=== PATIENT | male | born 1960 | race Caucasian/White ===

== ENCOUNTER 2018-12-24 19:46 | Inpatient (IN) | payer OTHER ==
--- NOTE | 2018-12-24 20:39 | C.PDOC ---
History Of Present Illness 58 year old male is sent to the ED by Dr. Hauser for admission to the OR. Patient reports having a boil, pimple on his face that developed into an abscess. patient states he tried using home remedies, popping and squeezing it with minimal puss coming out. Patient reports area got larger, went to see Dr. Hauser today and was sent to the ED for admission to the OR. Patient denies fever, chills, rash, neck swelling, lymphadenopathy. Time Seen by Provider: 12/24/18 20:28 Chief Complaint (Nursing): Abnormal Skin Integrity History Per: Patient History/Exam Limitations: no limitations Onset/Duration Of Symptoms: Days Current Symptoms Are (Timing): Still Present Location Of Injury: Left: Face (cheekbone) Quality Of Symptoms: Swollen Recent travel outside of the [place]: No Additional History Per: Patient Past Medical History Reviewed: Historical Data, Nursing Documentation, Vital Signs Vital Signs: Last Vital Signs Temp 98 F 12/24/18 20:10 Pulse 99 H 12/24/18 20:10 Resp 16 12/24/18 20:10 BP 198/112 H 12/24/18 20:10 Pulse Ox 95 12/24/18 20:10 - Medical History PMH: No Chronic Diseases Surgical History: No Surg Hx Family History: States: Unknown Family Hx - Social History Hx Alcohol Use: No Hx Substance Use: No - Immunization History Hx Tetanus Toxoid Vaccination: Yes Hx Influenza Vaccination: No Hx Pneumococcal Vaccination: No Review Of Systems Constitutional: Negative for: Fever, Chills ENT: Negative for: Throat Pain, Throat Swelling Respiratory: Negative for: Cough, Shortness of Breath Gastrointestinal: Negative for: Nausea, Vomiting, Abdominal Pain Musculoskeletal: Negative for: Neck Pain Skin: Positive for: Other (abscess). Negative for: Rash Neurological: Negative for: Weakness, Numbness, Headache Physical Exam - Physical Exam Appears: Non-toxic, No Acute Distress Skin: Normal Color, Warm, Dry Head: Atraumatic, Normacephalic, Other (left cheek, quarter size firm abscess with overlying ulceration. No draining) Eye(s): bilateral: Normal Inspection Oral Mucosa: Moist Neck: Normal ROM, No Midline Cervical Tenderness, Supple Lymphatic: No Adenopathy Cardiovascular: Rhythm Regular Respiratory: Normal Breath Sounds, No Rales, No Rhonchi, No Wheezing Extremity: Normal ROM Neurological/Psych: Oriented x3, Normal Speech, Normal Cognition Gait: Steady ED Course And Treatment - Laboratory Results Result Diagrams: 12/24/18 21:01 O2 Sat by Pulse Oximetry: 95 (ON RA) Pulse Ox Interpretation: Normal - Physician Consult Information Physician Contacted: Tutu Green Outcome Of Conversation: Patient to be admitted for I&D in OR and IV antibiotics. Disposition - Disposition Disposition: HOSPITALIZED Disposition Time: 21:06 Condition: STABLE - POA Present On Arrival: None - Clinical Impression Clinical Impression: Facial abscess - Scribe Statement The provider has reviewed the documentation as recorded by the Scribe Vinicio Hinton All medical record entries made by the Scribe were at my direction and personally dictated by me. I have reviewed the chart and agree that the record accurately reflects my personal performance of the history, physical exam, medical decision making, and the department course for this patient. I have also personally directed, reviewed, and agree with the discharge instructions and disposition.
[2018-12-24] MEDS ORDERED: Vancomycin 1 GM 1 GM/250 ML BAG IVPB ONE (20:56)
[2018-12-24 21:08] LABS: BASO # 0.1 K/uL (0.0-0.2); BASO % 0.6 % (0.0-2.0); EOS # 0.4 K/uL (0.0-0.7); HEMOGLOBIN 12.1 g/dL (12.0-18.0); LYMPH # 4.8 K/uL (1.0-4.3); LYMPH % 40.7 % (20.0-40.0); MEAN CELL VOLUME 82.5 fL (80.0-94.0); MEAN CORPUSCULAR HEMOGLOBIN 26.8 pg (27.0-31.0); MEAN CORPUSCULAR HGB CONC 32.5 g/dL (33.0-37.0); MEAN PLATELET VOLUME 7.9 fL (7.2-11.7); MONO # 0.9 K/uL (0.0-0.8); MONO % 7.3 % (0.0-10.0); NEUT # 5.7 K/uL (1.8-7.0); NEUT % 48.4 % (50.0-75.0); RBC 4.52 Mil/uL (4.40-5.90); RED CELL DISTRIBUTION WIDTH 13.9 % (11.5-14.5); WHITE BLOOD COUNT 11.8 K/uL (4.8-10.8)
[2018-12-24 21:22] LABS: ALB/GLOB RATIO 1.4 (1.0-2.1); ALBUMIN 4.3 g/dL (3.5-5.0); ALT/SGPT 16 U/L (21-72); AST/SGOT 26 U/L (17-59); BLOOD UREA NITROGEN 13 mg/dL (9-20); CALCIUM 9.1 mg/dl (8.6-10.4); GFR NON-AFRICAN AMERICAN > 60
[2018-12-24 21:24] LABS: PROTHROMBIN TIME 11.2 SECONDS (9.7-12.2)
--- NOTE | 2018-12-24 22:16 | CP.PCM.CON ---
<Lore Babcock - Last Filed: 12/24/18 23:43> History of Present Illness - History of Present Illness History of Present Illness: cc: "periorbital abscess" Mr. Melo is a 58 year old male with Hx of facial abscess was sent in by Dr. Green for facial abscess I&D. Medicine was consulted for hypertension. This abscess is in the same location as his previous abscess last year. It grew to its current size over the last week and a half. It started draining on Saturday, 3 days ago, but still stings. He does state that the swelling does impeded on his vision, but other does not bother him. He states that his blood pressure always runs high, but he does not take any medication for it. Denies chest pain, palpitations, dizziness, numbness, tingling, headaches, shortness of breath. PMH: facial abscess Med: denies All: NKDA PSxHx: abscess I&D 2017 FamHx: unknown SocHx: smokes 0.5ppd x 25 years, drinks beers socially on weekends, denies illicit drugs. 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 Review of Systems - Constitutional Constitutional: absent: Fever - EENT Eyes: Blurred Vision. absent: Change in Vision - Cardiovascular Cardiovascular: absent: Chest Pain, Dyspnea - Respiratory Respiratory: absent: Dyspnea Past Patient History - Past Social History Smoking Status: Heavy Smoker > 10 Cigarettes Daily Alcohol: Social Drugs: Denies - PSYCHIATRIC Hx Substance Use: No - SURGICAL HISTORY Hx Surgeries: No Meds Allergies/Adverse Reactions: Allergies Allergy/AdvReac Type Severity Reaction Status Date / Time No Known Allergies Allergy Verified 12/24/18 20:14 - Medications Medications: Current Medications Acetaminophen (Tylenol 325mg Tab) 650 mg PO Q6 PRN PRN Reason: Pain, moderate (4-7) Physical Exam - Constitutional Appears: Well, Non-toxic, No Acute Distress - Head Exam Head Exam: ATRAUMATIC, NORMOCEPHALIC - Eye Exam Eye Exam: EOMI, PERRL. absent: Conjunctival injection, Scleral icterus Pupil Exam: NORMAL ACCOMODATION Additional comments: fluctuant 2 square inch abscess on L cheek erythematous, no drainage from opening TTP without radiation - ENT Exam ENT Exam: Mucous Membranes Dry - Neck Exam Neck exam: Positive for: Normal Inspection. Negative for: Lymphadenopathy - Respiratory Exam Respiratory Exam: Clear to Auscultation Bilateral, NORMAL BREATHING PATTERN. absent: Rales, Rhonchi, Wheezes - Cardiovascular Exam Cardiovascular Exam: Tachycardia, +S1, +S2. absent: Systolic Murmur - GI/Abdominal Exam GI & Abdominal Exam: Normal Bowel Sounds, Soft. absent: Tenderness - Extremities Exam Extremities exam: Positive for: normal inspection. Negative for: pedal edema - Neurological Exam Neurological exam: Alert, Oriented x3 - Psychiatric Exam Psychiatric exam: Normal Affect, Normal Mood - Skin Skin Exam: Dry, Normal Color, Warm Results - Vital Signs Recent Vital Signs: Last Vital Signs Temp 97.4 F L 12/24/18 21:55 Pulse 81 12/24/18 21:55 Resp 20 12/24/18 21:55 BP 183/97 H 12/24/18 21:55 Pulse Ox 100 12/24/18 21:55 - Labs Result Diagrams: 12/24/18 21:11 12/24/18 21:01 Labs: Laboratory Results - last 24 hr 12/24/18 12/24/18 12/24/18 21:01 21:01 21:11 WBC 11.8 H RBC 4.52 Hgb 12.1 Hct 37.3 MCV 82.5 MCH 26.8 L MCHC 32.5 L RDW 13.9 Plt Count 398 MPV 7.9 Neut % (Auto) 48.4 L Lymph % (Auto) 40.7 H [place] % (Auto) 7.3 Eos % (Auto) 3.0 Baso % (Auto) 0.6 Neut # (Auto) 5.7 Lymph # (Auto) 4.8 H [place] # (Auto) 0.9 H Eos # (Auto) 0.4 Baso # (Auto) 0.1 PT 11.2 INR 1.0 APTT 35 H Sodium 138 Potassium 3.8 Chloride 103 Carbon Dioxide 25 Anion Gap 14 BUN 13 Creatinine 0.9 Est GFR ( Amer) > 60 Est GFR (Non-Af Amer) > 60 Random Glucose 94 Calcium 9.1 Total Bilirubin 0.3 AST 26 ALT 16 L Alkaline Phosphatase 80 Total Protein 7.3 Albumin 4.3 Globulin 3.0 Albumin/Globulin Ratio 1.4 Assessment & Plan - Assessment and Plan (Free Text) Assessment: 58yo M with PMH facial abscess admitted for periorbital abscess I&D. Medicine consulted for asymptomatic HTN. Plan: Periorbital abscess Vanco 1gm IVPB given in ED - Vanco 1gm IVPB daily (started 12/24) - Zosyn 3.375g IVPB q8 (started 12/24) - Tylenol 650mg po q6 prn for pain - NPO for I&D tomorrow - f/u blood Cx - f/u wound Cx - all surgical management per Dr. Green Hypertension BP 198/112 OA Labetalol 10mg IVP, Norvasc 10mg po given in ED - Norvasc 10mg po daily - monitor vitals d/w Dr. Melissa Babcock PGY-1 - Date & Time Date: 12/25/18 Time: 22:15 <Luis Torres - Last Filed: 12/25/18 05:40> Meds - Medications Medications: Current Medications Acetaminophen (Tylenol 325mg Tab) 650 mg PO Q6 PRN PRN Reason: Pain, moderate (4-7) Amlodipine Besylate (Norvasc) 10 mg PO DAILY AGAPITO Last Admin: 12/24/18 22:37 Dose: 10 mg Piperacillin Sod/Tazobactam Sod (Zosyn 3.375 Gm Iv Premix) 3.375 gm in 50 mls @ 100 mls/hr IVPB Q8H AGAPITO; Protocol Last Admin: 12/24/18 23:20 Dose: 100 mls/hr Vancomycin HCl 1 gm/ Sodium (Chloride) 250 mls @ 133 mls/hr IVPB Q24H AGAPITO; Protocol Pneumococcal Polyvalent Vaccine (Pneumovax 23 Vaccine) 0.5 ml IM .ONCE ONE Stop: 12/27/18 10:01 Results - Vital Signs Recent Vital Signs: Last Vital Signs Temp 97.8 F 12/25/18 00:10 Pulse 78 12/25/18 00:10 Resp 20 12/25/18 00:10 BP 175/89 H 12/25/18 00:10 Pulse Ox 95 12/25/18 00:10 - Labs Result Diagrams: 12/24/18 21:11 12/24/18 21:01 Labs: Laboratory Results - last 24 hr 12/24/18 12/24/18 12/24/18 21:01 21:01 21:11 WBC 11.8 H RBC 4.52 Hgb 12.1 Hct 37.3 MCV 82.5 MCH 26.8 L MCHC 32.5 L RDW 13.9 Plt Count 398 MPV 7.9 Neut % (Auto) 48.4 L Lymph % (Auto) 40.7 H [place] % (Auto) 7.3 Eos % (Auto) 3.0 Baso % (Auto) 0.6 Neut # (Auto) 5.7 Lymph # (Auto) 4.8 H [place] # (Auto) 0.9 H Eos # (Auto) 0.4 Baso # (Auto) 0.1 PT 11.2 INR 1.0 APTT 35 H Sodium 138 Potassium 3.8 Chloride 103 Carbon Dioxide 25 Anion Gap 14 BUN 13 Creatinine 0.9 Est GFR ( Amer) > 60 Est GFR (Non-Af Amer) > 60 Random Glucose 94 Calcium 9.1 Total Bilirubin 0.3 AST 26 ALT 16 L Alkaline Phosphatase 80 Total Protein 7.3 Albumin 4.3 Globulin 3.0 Albumin/Globulin Ratio 1.4 Attending/Attestation - Attestation I have personally seen and examined this patient.: Yes I have fully participated in the care of the patient.: Yes I have reviewed all pertinent clinical information: Yes Notes (Text): 12/25/18 05:35 Medical Consult: Patient was seen and examined by me with the medical laboratory technicians. Reviewed the above note by the medical laboratory technicians above and agree with the above. Patient was not in any acute distress however he reported that this has happened before in the past and this time it is bothering him signifigantly. In the ER his BP was in the 190s systolic and so he was given 10 of IV labetalol. We should have an EKG as well as CXR done. Also start norvasc 10 as well - should it remain elevated we can consider starting a second medication. Patient reports he does smoke, occasional alcohol use. He does not take any me dication he says. He has already been given IV abx in the ER and will continue these for the time being until he can be evaluated by his surgeon. There was already an order for NPO after midnight Luis Torres 12/25/18 05:39
[2018-12-24] MEDS ORDERED: Labetalol 25mg/5ml Syringe IVP STA (22:29)
[2018-12-24] MEDS: Piperacill/Tazo 3.375gm in Dex 3.375 GM/50 ML BAG IVPB SCH (23:20)
[2018-12-25] MEDS: Piperacill/Tazo 3.375gm in Dex 3.375 GM/50 ML BAG IVPB SCH ×3 (06:07→22:11)
[2018-12-25 06:53] LABS: BASO # 0.1 K/uL (0.0-0.2); BASO % 0.7 % (0.0-2.0); EOS # 0.3 K/uL (0.0-0.7); EOS % 3.5 % (0.0-4.0); HEMOGLOBIN 12.2 g/dL (12.0-18.0); LYMPH # 3.4 K/uL (1.0-4.3); LYMPH % 36.4 % (20.0-40.0); MEAN CELL VOLUME 83.1 fL (80.0-94.0); MEAN CORPUSCULAR HEMOGLOBIN 27.6 pg (27.0-31.0); MEAN CORPUSCULAR HGB CONC 33.2 g/dL (33.0-37.0); MONO # 0.8 K/uL (0.0-0.8); NEUT # 4.9 K/uL (1.8-7.0); NEUT % 51.4 % (50.0-75.0); NRBC % 0.1 % (0.0-2.0); RBC 4.42 Mil/uL (4.40-5.90); WHITE BLOOD COUNT 9.5 K/uL (4.8-10.8)
[2018-12-25 07:08] LABS: ALB/GLOB RATIO 1.5 (1.0-2.1); ALBUMIN 3.9 g/dL (3.5-5.0); ALT/SGPT 22 U/L (21-72); AST/SGOT 25 U/L (17-59); BLOOD UREA NITROGEN 12 mg/dL (9-20); CALCIUM 8.8 mg/dl (8.6-10.4); GFR NON-AFRICAN AMERICAN > 60
--- NOTE | 2018-12-25 07:35 | CP.PCM.PN ---
<Salvador Costa - Last Filed: 12/25/18 18:00> Subjective - Date & Time of Evaluation Date of Evaluation: 12/25/18 Time of Evaluation: 09:00 - Subjective Subjective: Medicine progress note for Dr Perez Patient seen and examined at bedside. No acute events overnight. Patien has no complaints at this time. Patient is npo prior to right facial abscess I&D procedure scheduled for this morning. Denies facial pain, denies fever, chills, chest pain, palpitations, headaches, dizziness, sob, N/v/d/c. Objective - Vital Signs/Intake and Output Vital Signs (last 24 hours): Temp Pulse Resp BP Pulse Ox 97.8 F 78 20 175/89 H 95 12/25/18 00:10 12/25/18 00:10 12/25/18 00:10 12/25/18 00:10 12/25/18 00:10 Intake and Output: 12/25/18 12/25/18 06:59 18:59 Intake Total 50 Output Total 400 Balance -350 - Medications Medications: Current Medications Acetaminophen (Tylenol 325mg Tab) 650 mg PO Q6 PRN PRN Reason: Pain, moderate (4-7) Amlodipine Besylate (Norvasc) 10 mg PO DAILY AGAPITO Last Admin: 12/24/18 22:37 Dose: 10 mg Piperacillin Sod/Tazobactam Sod (Zosyn 3.375 Gm Iv Premix) 3.375 gm in 50 mls @ 100 mls/hr IVPB Q8H AGAPITO; Protocol Last Admin: 12/25/18 06:07 Dose: 100 mls/hr Vancomycin HCl 1 gm/ Sodium (Chloride) 250 mls @ 133 mls/hr IVPB Q24H AGAPITO; Protocol Pneumococcal Polyvalent Vaccine (Pneumovax 23 Vaccine) 0.5 ml IM .ONCE ONE Stop: 12/27/18 10:01 - Labs Labs: 12/25/18 06:44 12/25/18 06:44 PT 11.2 SECONDS (9.7-12.2) 12/24/18 21:01 INR 1.0 12/24/18 21:01 APTT 35 SECONDS (21-34) H 12/24/18 21:01 - Constitutional Appears: Non-toxic, No Acute Distress - Head Exam Head Exam: ATRAUMATIC, NORMAL INSPECTION, NORMOCEPHALIC - Eye Exam Eye Exam: EOMI - Neck Exam Neck Exam: Full ROM - Respiratory Exam Respiratory Exam: Clear to Ausculation Bilateral, NORMAL BREATHING PATTERN. absent: Rales, Rhonchi, Wheezes - Cardiovascular Exam Cardiovascular Exam: REGULAR RHYTHM, +S1, +S2 - GI/Abdominal Exam GI & Abdominal Exam: Soft, Normal Bowel Sounds - Extremities Exam Extremities Exam: Full ROM, Normal Inspection - Back Exam Back Exam: NORMAL INSPECTION - Neurological Exam Neurological Exam: Alert, Awake, Oriented x3 - Psychiatric Exam Psychiatric exam: Normal Affect, Normal Mood - Skin Skin Exam: Dry, Warm Additional comments: Abscess on L cheek area no drainage from opening, nontender to palpation Assessment and Plan - Assessment and Plan (Free Text) Assessment: 58yo M with PMH facial abscess admitted for periorbital abscess I&D. Medicine consulted for asymptomatic HTN. Plan: Periorbital abscess - cont Vanco 1gm IVPB daily (started 12/24) - cont Zosyn 3.375g IVPB q8 (started 12/24) - Tylenol 650mg po q6 prn for pain - Scheduled for I&D today - f/u blood and wound Cx - all surgical management per Dr. Green Hypertension BP 123/82 this am - continue Norvasc 10mg po daily - cont to monitor vitals dispo: Patient advised, when discharge, to establish primary care with the [facility] for blood pressure monitoring and medication management, as well as to get general blood work done. will provide med script for one month supply and leave in chart for patient to take when d/c. Plan discussed with Dr Chris Costa, PGY-1 <Abner Perez - Last Filed: 12/25/18 18:36> Objective - Vital Signs/Intake and Output Vital Signs (last 24 hours): Temp Pulse Resp BP Pulse Ox 98.1 F 89 20 170/88 H 95 12/25/18 15:56 12/25/18 15:56 12/25/18 15:56 12/25/18 15:56 12/25/18 15:56 Intake and Output: 12/25/18 12/25/18 06:59 18:59 Intake Total 50 490 Output Total 400 Balance -350 490 - Medications Medications: Current Medications Acetaminophen (Tylenol 325mg Tab) 650 mg PO Q6 PRN PRN Reason: Pain, moderate (4-7) Amlodipine Besylate (Norvasc) 10 mg PO DAILY AGAPITO Last Admin: 12/25/18 10:02 Dose: 10 mg Piperacillin Sod/Tazobactam Sod (Zosyn 3.375 Gm Iv Premix) 3.375 gm in 50 mls @ 100 mls/hr IVPB Q8H AGAPITO; Protocol Last Admin: 12/25/18 14:30 Dose: 100 mls/hr Vancomycin HCl 1 gm/ Sodium (Chloride) 250 mls @ 133 mls/hr IVPB Q24H AGAPITO; Protocol Pneumococcal Polyvalent Vaccine (Pneumovax 23 Vaccine) 0.5 ml IM .ONCE ONE Stop: 12/27/18 10:01 Tramadol HCl (Ultram) 50 mg PO TID PRN PRN Reason: pain - Labs Labs: 12/25/18 06:44 12/25/18 06:44 PT 11.2 SECONDS (9.7-12.2) 12/24/18 21:01 INR 1.0 12/24/18 21:01 APTT 35 SECONDS (21-34) H 12/24/18 21:01 Attending/Attestation - Attestation I have personally seen and examined this patient.: Yes I have fully participated in the care of the patient.: Yes I have reviewed all pertinent clinical information, including history, physical exam and plan: Yes Notes (Text): Patient was brought in by surgeon Dr green for surgical management of left facial abscess His blood pressure is high. He denies Hypertension. Discussed with the patient and his at bedside about out patient follow up to monitor his blood pressure and continue amlodipine. We explained about risk of stroke,heart problem and kidney disease due to untreated high blood pressure Patient had an I and D done today and going back to OR tomorrow for sutures
--- NOTE | 2018-12-25 07:50 | RAD ---
Date of service: 12/25/2018 HISTORY: HTN, pre-op COMPARISON: No prior. TECHNIQUE: 1 view obtained. FINDINGS: LUNGS: No active pulmonary disease. PLEURA: No significant pleural effusion identified, no pneumothorax apparent. CARDIOVASCULAR: No aortic atherosclerotic calcification present. Normal cardiac size. No pulmonary vascular congestion. OSSEOUS STRUCTURES: Thoracic spondylosis. Projection versus old healed deformity lateral right clavicle. VISUALIZED UPPER ABDOMEN: Normal. OTHER FINDINGS: None. IMPRESSION: No active disease.
[2018-12-25] MEDS ORDERED: Propofol 10 mg/ml Inj (20 ML) ONE (10:36)
[2018-12-25] MEDS ORDERED: Midazolam 2 MG/2 ML VIAL ONE (10:36)
[2018-12-25] MEDS ORDERED: Lidocaine/Epinephrine 1% 1:100000 10 ML IJ ONE (10:48)
[2018-12-26] MEDS: Piperacill/Tazo 3.375gm in Dex 3.375 GM/50 ML BAG IVPB SCH ×2 (06:07→15:48)
--- NOTE | 2018-12-26 06:22 | OP ---
PROCEDURE DATE: 12/25/2018 PREOPERATIVE DIAGNOSIS: Left periorbital cellulitis with abscess. POSTOPERATIVE DIAGNOSIS: Left periorbital cellulitis with abscess. PROCEDURE PERFORMED: Drainage of left periorbital abscess, debridement of abscess cavity. SURGEON: Tutu Green MD ANESTHESIA: General. BLOOD LOSS: 20 mL. POSTOPERATIVE CONDITION: Stable. INDICATIONS FOR SURGERY: This is a 58-year-old male with a history of a left zygomatic abscess periorbital cellulitis, now taken to the operating room for debridement and drainage. GROSS FINDINGS: The patient had a partially spontaneously drained abscess. There was some pus remaining which we drained and cultured. There was necrotic abscess cavity which was debrided. Pulse irrigation was performed to clean the wound. DESCRIPTION OF PROCEDURE: The patient was taken to the operating room. General anesthesia was administered. The left cheek and facial area were prepped and draped. The abscess cavity was aggressively debrided through sharp and blunt dissection. Any remaining collections were drained and cultured. Bleeding was controlled using the Bovie. The wound was pulse irrigated with saline solution. Partial tissue flap closure was performed. The central portion of wound was packed open with saline gauze. The patient tolerated the procedure well and returned to recovery room in stable condition. Tutu Green MD
[2018-12-26 07:16] LABS: BASO # 0.1 K/uL (0.0-0.2); BASO % 0.7 % (0.0-2.0); EOS # 0.3 K/uL (0.0-0.7); HEMOGLOBIN 12.1 g/dL (12.0-18.0); LYMPH # 3.4 K/uL (1.0-4.3); LYMPH % 39.1 % (20.0-40.0); MEAN CELL VOLUME 83.4 fL (80.0-94.0); MEAN CORPUSCULAR HGB CONC 32.4 g/dL (33.0-37.0); MEAN PLATELET VOLUME 8.1 fL (7.2-11.7); MONO # 0.5 K/uL (0.0-0.8); NEUT # 4.5 K/uL (1.8-7.0); NEUT % 51.2 % (50.0-75.0); NRBC % 0.1 % (0.0-2.0); RBC 4.49 Mil/uL (4.40-5.90); RED CELL DISTRIBUTION WIDTH 13.9 % (11.5-14.5); WHITE BLOOD COUNT 8.7 K/uL (4.8-10.8)
[2018-12-26 07:22] LABS: ALB/GLOB RATIO 1.4 (1.0-2.1); ALBUMIN 3.8 g/dL (3.5-5.0); ALT/SGPT 19 U/L (21-72); AST/SGOT 22 U/L (17-59); BLOOD UREA NITROGEN 14 mg/dL (9-20); CALCIUM 8.7 mg/dl (8.6-10.4); GFR NON-AFRICAN AMERICAN > 60
--- NOTE | 2018-12-26 09:14 | CP.PCM.PN ---
<Eric Berrios - Last Filed: 12/26/18 14:00> Subjective - Date & Time of Evaluation Date of Evaluation: 12/26/18 Time of Evaluation: 09:00 - Subjective Subjective: Medicine progress note for hospitalist Dr. Perez. Patient seen and examined at bedside. Pt is post I&D for periorbital abscess. patient reports having no complaints. Denies f/c, diarrhea, constipation, chest pain, SOB, abdominal pain. Patient reports he needs to be discharged today as he has plans. Objective - Vital Signs/Intake and Output Vital Signs (last 24 hours): Temp Pulse Resp BP Pulse Ox 98.3 F 79 20 115/81 96 12/26/18 07:57 12/26/18 07:57 12/26/18 07:57 12/26/18 07:57 12/26/18 07:57 Intake and Output: 12/26/18 12/26/18 06:59 18:59 Intake Total 610 Balance 610 - Medications Medications: Current Medications Acetaminophen (Tylenol 325mg Tab) 650 mg PO Q6 PRN PRN Reason: Pain, moderate (4-7) Amlodipine Besylate (Norvasc) 10 mg PO DAILY AGAPITO Last Admin: 12/25/18 10:02 Dose: 10 mg Piperacillin Sod/Tazobactam Sod (Zosyn 3.375 Gm Iv Premix) 3.375 gm in 50 mls @ 100 mls/hr IVPB Q8H AGAPITO; Protocol Last Admin: 12/26/18 06:07 Dose: 100 mls/hr Vancomycin HCl 1 gm/ Sodium (Chloride) 250 mls @ 133 mls/hr IVPB Q24H AGAPITO; Protocol Last Admin: 12/25/18 20:27 Dose: 133 mls/hr Pneumococcal Polyvalent Vaccine (Pneumovax 23 Vaccine) 0.5 ml IM .ONCE ONE Stop: 12/27/18 10:01 Tramadol HCl (Ultram) 50 mg PO TID PRN PRN Reason: pain - Labs Labs: 12/26/18 06:55 12/26/18 06:55 PT 11.2 SECONDS (9.7-12.2) 12/24/18 21:01 INR 1.0 12/24/18 21:01 APTT 35 SECONDS (21-34) H 12/24/18 21:01 - Constitutional Appears: Non-toxic, No Acute Distress, Agitated - Head Exam Head Exam: NORMAL INSPECTION - Eye Exam Eye Exam: EOMI, Normal appearance - ENT Exam ENT Exam: Mucous Membranes Moist - Neck Exam Neck Exam: Full ROM - Respiratory Exam Respiratory Exam: Clear to Ausculation Bilateral, NORMAL BREATHING PATTERN. absent: Rales, Rhonchi, Wheezes - Cardiovascular Exam Cardiovascular Exam: +S1, +S2 - GI/Abdominal Exam GI & Abdominal Exam: Soft, Normal Bowel Sounds - Extremities Exam Extremities Exam: absent: Calf Tenderness, Pedal Edema - Back Exam Back Exam: absent: CVA tenderness (L), CVA tenderness (R) - Neurological Exam Neurological Exam: Alert, Awake - Psychiatric Exam Psychiatric exam: Normal Affect, Normal Mood - Skin Skin Exam: Dry, Intact, Normal Color, Warm Additional comments: Dressing covering I&D site, dressing clean, dry ,intact. No pain reported, approximately 1 cm diameter w/ packing Assessment and Plan - Assessment and Plan (Free Text) Assessment: 58yo M with PMH facial abscess admitted for periorbital abscess s/p I&D 12/25/18. Medicine consulted for asymptomatic HTN. Plan: Periorbital abscess - s/p I&D - cont Vanco 1gm IVPB daily (started 12/24) - cont Zosyn 3.375g IVPB q8 (started 12/24) - Tylenol 650mg po q6 prn for pain - f/u blood and wound Cx - recommend d/c w/ clindamycin 450 mg Q8H for 7 days - florastor 1 tab BID for 30 days - all surgical management per Dr. Green Hypertension - continue Norvasc 10mg po daily - cont to monitor vitals dispo: Recommend discharge with norvasc 10 mg PO daily, clindamycin 450 mg PO Q8H for 7 days, florastor 1 tab BID for 30 days. F/u at [facility] for follow up care Medicine team will sign off Please re-consult as necessary <Abner Perez - Last Filed: 12/26/18 14:25> Objective - Vital Signs/Intake and Output Vital Signs (last 24 hours): Temp Pulse Resp BP Pulse Ox 98.3 F 79 20 115/81 96 12/26/18 07:57 12/26/18 07:57 12/26/18 07:57 12/26/18 07:57 12/26/18 07:57 Intake and Output: 12/26/18 12/26/18 06:59 18:59 Intake Total 610 0 Balance 610 0 - Medications Medications: Current Medications Acetaminophen (Tylenol 325mg Tab) 650 mg PO Q6 PRN PRN Reason: Pain, moderate (4-7) Amlodipine Besylate (Norvasc) 10 mg PO DAILY AGAPITO Last Admin: 12/26/18 10:32 Dose: 10 mg Piperacillin Sod/Tazobactam Sod (Zosyn 3.375 Gm Iv Premix) 3.375 gm in 50 mls @ 100 mls/hr IVPB Q8H AGAPITO; Protocol Last Admin: 12/26/18 06:07 Dose: 100 mls/hr Vancomycin HCl 1 gm/ Sodium (Chloride) 250 mls @ 133 mls/hr IVPB Q24H AGAPITO; Protocol Last Admin: 12/25/18 20:27 Dose: 133 mls/hr Pneumococcal Polyvalent Vaccine (Pneumovax 23 Vaccine) 0.5 ml IM .ONCE ONE Stop: 12/27/18 10:01 Tramadol HCl (Ultram) 50 mg PO TID PRN PRN Reason: pain - Labs Labs: 12/26/18 06:55 12/26/18 06:55 PT 11.2 SECONDS (9.7-12.2) 12/24/18 21:01 INR 1.0 12/24/18 21:01 APTT 35 SECONDS (21-34) H 12/24/18 21:01 Attending/Attestation - Attestation I have personally seen and examined this patient.: Yes I have fully participated in the care of the patient.: Yes I have reviewed all pertinent clinical information, including history, physical exam and plan: Yes Notes (Text): seen and examined by me. patient had I and D of his face wound yesterday wound looks clean. Going to OR to suture by the surgeon We will recommend to discharge on amlodipine for his high BP.Patient was asked to folow the medical clinic to monitor his BP continue clindamycin for his wound infection(staph sensitive to clinda) with probiotics,follow surgeon after discharge Medicine team will sign off.Thank you for the consult Please re-consult as necessary
[2018-12-26] MEDS ORDERED: Midazolam 2 MG/2 ML VIAL ONE (13:37)
[2018-12-26] MEDS ORDERED: Propofol 10 mg/ml Inj (20 ML) ONE (13:38)
[2018-12-26] MEDS ORDERED: Bacitracin 500 Units/gm Oint Foilpak UD ONE (14:06)
[2018-12-26] MEDS ORDERED: Lidocaine Hydrochloride 5 ML INJ ONE (14:20)
[2018-12-26] MEDS ORDERED: HYDROmorphone 0.5 mg/0.5 ml ISec IVP PRN (14:20)
[2018-12-26 15:56] VITALS: BP 165/102; PULSE 71; RESP 20; TEMP 97.2; O2SAT 100
--- NOTE | 2018-12-26 16:24 | CP.PCM.PN ---
Subjective - Date & Time of Evaluation Date of Evaluation: 12/26/18 Time of Evaluation: 16:20 - Subjective Subjective: House doctor note: Paged for patient requesting to sign out Against medical advice. Patient is A&O x3. Patient is requesting to leave ama. Encouraged patient to stay as discharge is scheduled for 12/27. Patient refused. Informed the patient the risks of leaving, including respiratory/cardiact distress/ arrest, life threatening infection that can lead to . Patient understood but still requested AMA. Pt signed AMA form, nurse to witness. Nursing staff to inform primary. Objective - Vital Signs/Intake and Output Vital Signs (last 24 hours): Temp Pulse Resp BP Pulse Ox 97.2 F L 71 20 165/102 H 100 12/26/18 15:56 12/26/18 15:56 12/26/18 15:56 12/26/18 15:56 12/26/18 15:56 Intake and Output: 12/26/18 12/26/18 06:59 18:59 Intake Total 610 410 Balance 610 410 - Medications Medications: Current Medications Acetaminophen (Tylenol 325mg Tab) 650 mg PO Q6 PRN PRN Reason: Pain, moderate (4-7) Amlodipine Besylate (Norvasc) 10 mg PO DAILY AGAPITO Last Admin: 12/26/18 10:32 Dose: 10 mg Piperacillin Sod/Tazobactam Sod (Zosyn 3.375 Gm Iv Premix) 3.375 gm in 50 mls @ 100 mls/hr IVPB Q8H AGAPITO; Protocol Last Admin: 12/26/18 15:48 Dose: 100 mls/hr Vancomycin HCl 1 gm/ Sodium (Chloride) 250 mls @ 133 mls/hr IVPB Q24H AGAPITO; Protocol Last Admin: 12/25/18 20:27 Dose: 133 mls/hr Pneumococcal Polyvalent Vaccine (Pneumovax 23 Vaccine) 0.5 ml IM .ONCE ONE Stop: 12/27/18 10:01 Tramadol HCl (Ultram) 50 mg PO TID PRN PRN Reason: pain - Labs Labs: 12/26/18 06:55 12/26/18 06:55 PT 11.2 SECONDS (9.7-12.2) 12/24/18 21:01 INR 1.0 12/24/18 21:01 APTT 35 SECONDS (21-34) H 12/24/18 21:01
[2018-12-27] MEDS ORDERED: Pneumococcal 23-Valent Vaccine IM ONE (10:00)
--- NOTE | 2018-12-28 14:16 | OP ---
PROCEDURE DATE: 12/26/2018 PREOPERATIVE DIAGNOSIS: Infected wound, face. POSTOPERATIVE DIAGNOSIS: Infected wound, face. PROCEDURE PERFORMED: Debridement and closure of the infected wound to the face. SURGEON: Tutu Green MD ANESTHESIA: General. BLOOD LOSS: 20 mL. POSTOPERATIVE CONDITION: Stable. INDICATION FOR SURGERY: This 58-year-old male was taken back to the operating room after drainage of the facial abscess. The patient has a wide open wound and now will undergo debridement and closure of . DESCRIPTION OF PROCEDURE: The patient was taken to the operating room. General anesthesia was administered. The left side of the face and zygomatic area were prepped and draped. The wound was aggressively debrided and pulse irrigated. Bleeding was controlled using a Bovie. Tissue flaps were raised. Counter incisions were made and a tissue flap closure was performed with multiple layers of Monocryl, subcuticular Monocryl and dressed with Bacitracin. The patient tolerated the procedure well and returned to recovery room in stable condition. Tutu Green MD
== END 2018-12-26 17:15 | disposition left against medical advice (07) | DRG 364 ==
LOC: C.ER 19:46 → C.3T 20:29
PROVIDERS: ADMIT Surgery; ATTEND Surgery
PROC: 0J910ZZ Drainage of Face Subcutaneous Tissue and Fascia, Open Approach (ICD-10-PCS; principal; 2018-12-25 16:30)
PROC: 0JD10ZZ Extraction of Face Subcutaneous Tissue and Fascia, Open Approach (ICD-10-PCS; 2018-12-26)
DX: L03.213 Periorbital cellulitis (principal); L02.01 Cutaneous abscess of face; F17.210 Nicotine dependence, cigarettes, uncomplicated